=== PATIENT | male | born 1970 | race Caucasian/White ===

== ENCOUNTER → 2021-05-19 | Day surgery (SDC) | payer OTHER ==
[~2021-05-19] VITALS: Ht 172.7 cm; Wt 122.5 kg
[~2021-05-19] MED LIST: LOSARTAN POTASS50 MG PO; NORCO 5-325 TA1 EACH PO; SERTRALINE HCL100 MG PO
[2021-05-19 08:12] LABS: HCT 47.9 % (42.0-52.0); HGB 15.5 g/dl (13.2-18.0); MCH 28.8 pg (25.0-31.0); MCHC 32.4 g/dL (32.0-36.0); MPV 8.6 fL (6.0-9.5); RBC 5.38 M/uL (4.70-6.00); RDW 13.7 % (11.5-14.0); WBC 9.1 K/uL (4.0-10.5)
[2021-05-19 08:29] LABS: ALBUMIN 4.2 g/dL (3.4-5.0); BILIRUBIN - TOTAL 0.4 mg/dL (0.2-1.0); BUN/CREAT RATIO (CALC) 15.5 RATIO; CREATININE 0.71 mg/dL (0.67-1.17); GLOBULIN (CALCULATION) 3.8 g/dL
== END | disposition home or self-care (01) ==
LOC: FAS 07:44
PROVIDERS: Surgery
DX: Z12.11 Encounter for screening for malignant neoplasm of colon (principal); K64.1 Second degree hemorrhoids; K57.30 Diverticulosis of large intestine without perforation or abscess without bleeding; I10 Essential (primary) hypertension; Z88.1 Allergy status to other antibiotic agents; Z79.899 Other long term (current) drug therapy
CPT/HCPCS: 36415; 80053; J1100; J2250; J2704; J7120